=== PATIENT | female | born 1980 | race Caucasian/White ===

== ENCOUNTER 2017-10-31 20:09 | Emergency (ER) | payer OTHER ==
[~2017-10-31 20:09] MED LIST: AMILORIDE HCL5 MG PO; AMOXICILLIN500 MG PO; DULERA1 ARO INH; ESCITALOPRAM20 MG PO; LITHIUM CARBON300 M2 PO; NADOLOL20 MG PO; PRENATAL1 TA2 PO; PRILOSEC 20MG C20 MG PO; ZOLPIDEM TARTRA10 MG PO; ZYRTEC ALLERGY10 MG PO
[2017-10-31 20:15] VITALS: BP 126/85
--- NOTE | 2017-10-31 21:01 | RADIOLOGY REPORT ---
EXAMINATION: RIGHT ANKLE AND RIGHT FOOT RADIOGRAPHS. CLINICAL INFORMATION: Pain after rolling ankle. COMPARISON: No relevant prior imaging. TECHNIQUE: 3 views of the right ankle were obtained. 3 views of the right foot were obtained. FINDINGS: There is an acute avulsion fracture of the trochlear process of the calcaneus best illustrated on the direct AP view and there is associated swelling of the adjacent soft tissues. No dislocation. No joint effusion. No evidence of acute fracture or dislocation elsewhere within the foot. IMPRESSION: Acute avulsion fracture of the trochlear process of the calcaneus with mild swelling of the adjacent soft tissues of the lateral ankle.
--- NOTE | 2017-10-31 21:01 | ED ANKLE/FOOT INJURY COMPLAINT ---
History of Present Illness General Chief Complaint: Foot or Ankle Injury Stated Complaint: ANKLE PAIN AND SWELLING Source: patient, old records Exam Limitations: no limitations Vital Signs & Intake/Output Vital Signs & Intake/Output Vital Signs Date Time Temp Pulse Resp B/P B/P Pulse O2 O2 Flow FiO2 Mean Ox Delivery Rate 10/31 2014 98.6 102 18 126/85 98 Allergies Coded Allergies: MDX - Peanuts (PEANUTS) (RHINITIS 10/21/14) MDX - Shellfish (SHELLFISH) (RHINITIS 10/21/14) MDX - Morphine (MORPHINE) (Intermediate, VOMIT 10/21/14) Reconcile Medications Amiloride Hydrochloride (Amiloride HCl) 5 MG TAB 1 TAB PO DAILY LITHIUM COMPLICATIONS (Reported) CETIRIZINE HCL (Zyrtec) 10 MG CAPSULE 1 CAP PO DAILY ALLERGIES (Reported) Escitalopram Oxalate 20 MG TABLET 1.5 TAB PO DAILY BIPOLAR (Reported) Hydrocodone/Acetaminophen ([place] 5-325 Tablet) 5 MG-325 MG TABLET 1-2 TAB PO Q4-6 PRN PRN severe pain Ibuprofen 600 MG TABLET 1 TAB PO TID PRN pain with food [place] Carbonate ([place] Carbonate ER) 300 MG TABLET.ER 3 TAB PO DAILY BIPOLAR (Reported) MOMETASONE/FORMOTEROL (Dulera 100 Mcg/5 Mcg Inhaler) 100 MCG-5 MCG/ACTUATION HFA.AER.AD 2 PUF INH DAILY ASTHMA (Reported) Nadolol 20 MG TABLET 1 TAB PO DAILY PALPITATIONS (Reported) Omeprazole (Prilosec) 20 MG CAPSULE.DR 1 CAP PO DAILY AC GI (Reported) PNV95/FERROUS FUMARATE/FA ( Formula Tablet) 28 MG IRON-800 MCG TABLET 1 TAB PO DAILY (Reported) Zolpidem Tartrate 10 MG TAB 1 TAB PO PRN SLEEP (Reported) Triage Note: PER PT TRIPPED IN BEDROOM TWISTED R ANKLE HEARD A CRACK AND IT SWELLED RIGHT UP 30 MINUTES MEDICAL [employer] LMP 5 DAYS AGO Triage Nurses Notes Reviewed? yes Occurred: just prior to arrival Duration: minute(s):, constant, continues in ED Timing: single episode today Severity: severe Pain/Injury Location: Right: Ankle. Method of Injury: twisted Modifying Factors: Improves With: immobilization, rest. Worsens With: jarring, movement. Associated Symptoms: swelling, GCS 15 since, stiffness LMP (ages 10-50): unknown : No Patient currently breastfeeds: No HPI: Prior to admission patient lost her balance and twisted her right ankle. She complains of severe pain and swelling worse with weightbearing palpation constant nonradiating. She denies other injury fever chills nausea vomiting diarrhea abdominal pain chest pain shortness breath headache dysuria rash bleeding Past History Travel History Traveled to [place] past 21 day No Medical History Any Pertinent Medical History? 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 No Review of Systems Review of Systems Constitutional: Reports: no symptoms. EENTM: Reports: no symptoms. Respiratory: Reports: no symptoms. Cardiovascular: Reports: no symptoms. GI: Reports: no symptoms. Genitourinary: Reports: no symptoms. Musculoskeletal: Reports: see HPI, joint pain, joint swelling. Skin: Reports: no symptoms. Neurological/Psychological: Reports: no symptoms. Hematologic/Endocrine: Reports: no symptoms. Immunologic/Allergic: Reports: no symptoms. All Other Systems: Reviewed and Negative Physical Exam Physical Exam General Appearance: well developed/nourished, alert, awake, anxious, moderate distress, obese Head: atraumatic, normal appearance Eyes: Bilateral: normal appearance, PERRL, EOMI. Ears, Nose, Throat: normal pharynx, normal ENT inspection, hearing grossly normal Neck: normal inspection, supple, full range of motion, no midline tenderness Cardiovascular/Respiratory: normal breath sounds, normal peripheral pulses, regular rate/rhythm, no respiratory distress Back: normal inspection, normal range of motion Leg/Knee/Thigh Left: normal range of motion, normal inspection Leg/Knee/Thigh Right: normal range of motion, normal inspection Ankle Left: normal inspection, normal range of motion Ankle Right: bone tenderness, evidence of injury, soft tissue tenderness, swelling, tenderness, limited range of motion Foot Left: normal inspection, normal range of motion Foot Right: evidence of injury, limited range of motion, soft tissue tenderness, swelling Reflexes: 2+: knee (R), knee (L). Neuro/Vascular: normal motor function, normal sensation Tendon: normal tendon function Psychiatric: awake, alert, oriented x 3 Skin: intact, normal color, warm/dry Progress Differential Diagnosis: fracture, dislocation, sprain Plan of Care: Orders Procedure Date/time Status Durable Medical Equipment 10/31 2104 Active Diagnostic Imaging: Viewed by Me: Radiology Read. Discussed w/RAD: Radiology Read. Radiology Impression: Acute avulsion fracture of the trochlear process of the calcaneus with mild swelling of the adjacent soft tissues of the lateral ankle. Departure Departure Time of Disposition: 2105 Disposition: HOME OR SELF CARE Condition: Stable Clinical Impression Primary Impression: Ankle fracture, right Referrals: Perry CHADWICK,Emmanuelle Peoples (PCP/Family) Ruthann CHADWICK,Oleksandr Mayorga Additional Instructions: No weight bearing until evaluated by orthopedics Departure Forms: Customer Survey General Discharge Information RELEASE- WORK Prescriptions: Current Visit Scripts Ibuprofen 1 TAB PO TID PRN pain #30 TAB with food Hydrocodone/Acetaminophen ([place] 5-325 Tablet) 1-2 TAB PO Q4-6 PRN PRN severe pain #15 TAB
[2017-10-31] MEDS ORDERED: IBUPROFEN600 M1 PO (21:07)
[2017-10-31] MEDS ORDERED: NORCO 5-325 TA1 EACH PO (21:07)
== END 2017-10-31 21:36 ==
LOC: ERH 20:09
DX: S92.001A Unspecified fracture of right calcaneus, initial encounter for closed fracture (principal); X58.XXXA Exposure to other specified factors, initial encounter; Y92.9 Unspecified place or not applicable; Y93.9 Activity, unspecified
CPT/HCPCS: 73610-RT; 73630-RT